=== PATIENT | male | born 1930 | race Caucasian/White ===

== ENCOUNTER 2018-11-21 10:28 | Day surgery (SDC) | payer MEDICARE, BC ==
--- NOTE | 2018-11-21 07:24 | History and Physical - Ferro ---
CHIEF COMPLAINT/HISTORY OF CHIEF COMPLAINT: This patient with a history of intractable lumbar radiculopathy had a spinal cord stimulator implant on . Through the years this system appeared to be working quite well. Over the last two to three years this system stopped working and rather than contact the facility for evaluation he just simply let the system go. At this point he is here by his request for removal of the system. PAST MEDICAL HISTORY: Hypertension. PAST SURGICAL HISTORY: Appendectomy, replacement coronary artery bypass, gallbladder surgery, and stimulator implant. MEDICATIONS ON ADMISSION: List to be provided. ALLERGIES: LEVAQUIN AND LYRICA. FAMILY/PSYCHOSOCIAL HISTORY: Social history - Caffeine. Family history - Cancer and hypertension. SYSTEMS REVIEW: The patient is appropriate in no acute distress. The remainder of the systems review shows the generator in the posterior gluteal margin. The incisional sites for the leads are noted suggesting two peripheral nerve stimulators. PHYSICAL EXAMINATION: The sensory kerr are intact. Neurologic - Cranial nerves are intact. IMPRESSION: 1. LUMBAR RADICULOPATHY, ICD-10 CODE M54.16 AND M54.17. 2. PERIPHERAL NERVE STIMULATOR NONFUNCTIONAL WITH INTERNAL GENERATOR. PLAN: The patient is here for removal of two nonfunctional peripheral nerve stimulators and a generator. The procedure will be considered outpatient although an overnight stay will be evaluated. JOB NUMBER: [id number] MTDD
[~2018-11-21 10:28] MED LIST: ACETAMINOPHEN 1,000 MG/100 ML BTL IV ONE; CEFAZOLIN 2 Gram 2 GM/50 ML BAG IVPB ONE
[2018-11-21] MEDS ORDERED: LIDOCAINE 2% MDV (20MG/ML) 20ML VIAL IV ONE (10:29)
[2018-11-21] MEDS ORDERED: PROPOFOL 10 MG/ML VIAL IV ONE (10:29)
[2018-11-21] MEDS ORDERED: CEFAZOLIN 1G VIAL IM ONE (10:29)
[2018-11-21] MEDS ORDERED: LIDOCAINE 1% W/EPI 1:200,000 MPF 30ML SQ ONE (10:29)
[2018-11-21] MEDS ORDERED: BUPIVACAINE 0.5% W/EPI MPF 30 ML VIAL IVP ONE (10:29)
[2018-11-21] MEDS ORDERED: FENTANYL PF 100MCG/2ML VIAL IV ONE (10:29)
--- NOTE | 2018-11-22 17:42 | Operative Note - Ferro ---
DATE OF SURGERY: 11/21/18 PREOPERATIVE DIAGNOSES: 1. LUMBAR RADICULOPATHY, ICD-10 CODE = M54.16 AND M54.17. 2. TWO LEFT STIMULATOR INTERNAL GENERATOR, NONFUNCTIONAL. OPERATION: 1. FLUOROSCOPICALLY-GUIDED INCISION, SUBCUTANEOUS DISSECTION, AND REMOVAL OF TWO PERIPHERAL NERVE STIMULATORS SUBCUTANEOUSLY PLACED. 2. INCISION, SUBCUTANEOUS DISSECTION, AND REMOVAL OF INTERNAL PULSE GENERATOR. SURGEON: KIKA FOX D.O. ANESTHESIA: LOCAL SEDATION. ANESTHESIA PROVIDER: INDICATION: This patient with a history of intractable back and leg pain had a peripheral nerve stimulator implanted with generator approximately 15-20 years ago. Although initially quite functional, over the last number of years, it has stopped working appropriately and rather than contact the clinic, he just came in requesting removal. PROCEDURE: Intravenous line, vital sign monitoring, IV sedation, prepped and draped sterile technique. Under imaging, the peripheral nerve stimulators, one left and one right of the midline, inserted at L5-S1, marked and infiltrated. Incision made and subcutaneous dissection was conducted to the generator. The leads were then removed intact along with retention suture. At the right posterior gluteal margin generator pouch, skin infiltrated, incision made, and subcutaneous dissection was conducted to the generator pouch. The generator was opened and the generator removed. Antibiotic irrigation and Bovie for hemostasis. X-ray was taken to confirm removal of the entire system. The incisions were then closed with Vicryl for fascia and karmen for skin. OpSite dressing was placed. He was transported to the Recovery Room stable. No side- effects with the procedure or the sedation. When fully awake and alert, he was then prepared for discharge. DISCHARGE INSTRUCTIONS: 1. Sites remain clean and dry. No showering or bathing in any way that would disrupt the dressings. If it happens, contact the clinic. 2. Standard medications resumed including the antibiotic Levaquin 500 mg once a day for 14 days. 3. The office will contact the patient in 24-48 hours to set up a time in 7-10 days to evaluate the sites and remove karmen. All other instructions provided, numbers to contact with problems given. He was then discharged. cc: Dr. Henao JOB NUMBER: [id number] MTDD
== END 2018-11-21 13:35 | disposition home or self-care (01) ==
LOC: SUR 10:28
PROVIDERS: ATTEND Pain Medicine Interventional Pain Medicine
DX: M54.16 Radiculopathy, lumbar region (principal); M54.17 Radiculopathy, lumbosacral region; I50.9 Heart failure, unspecified; E78.00 Pure hypercholesterolemia, unspecified; G62.9 Polyneuropathy, unspecified; I20.9 Angina pectoris, unspecified; N19 Unspecified kidney failure; H54.40 Blindness, one eye, unspecified eye; Z95.1 Presence of aortocoronary bypass graft
CPT/HCPCS: 63661; 63688; 01936; J3010; J0690